=== PATIENT | male | born 1940 | race Caucasian/White ===

== ENCOUNTER 2016-04-10 14:40 | Inpatient (IN) | payer OTHER ==
[2016-04-14] MEDS ORDERED: IOPAMIDOL (ISOVUE-300) 50 ML VIAL IV ONE (13:35)
[2016-04-15] MEDS ORDERED: MAG HYDROX/AL HYDROX/SIMETH 30 ML UDCUP PO PRN (16:32)
[2016-04-15] MEDS ORDERED: ACETAMINOPHEN 325 MG TAB PO PRN (16:32)
[2016-04-15] MEDS ORDERED: NITROGLYCERIN 0.4 MG BTL SL PRN (16:47)
[2016-04-15] MEDS ORDERED: ALBUTEROL 60 PUFFS/8 GM MDI IH PRN (16:47)
--- NOTE | 2016-04-15 17:54 | PDOREHIP ---
Admission [facility] - Admission - 3 Day Assessment Period Admission Date/Day 1: 04/15/16 Day 2: 04/16/16 Day 3: 04/17/16 - Skin Conditions Unhealed Pressure Ulcer (1 or more/Stage 1 or >)-Admission: 0. No
--- NOTE | 2016-04-15 18:24 | GHP ---
Created in error. Physical exam was dictated to this note and moved to the full H&P. MTDD
[2016-04-15] MEDS ORDERED: CARVEDILOL 6.25 MG TAB PO ONE (19:00)
--- NOTE | 2016-04-15 19:44 | GHP ---
[f rep st] HISTORY AND PHYSICAL DATE OF ADMISSION: 04/15/2016 Referring Physician: Alec Dong MD Inpatient Rehabilitation Medicine Post Admission Physician Evaluation and Rehabilitation Treatment Plan REFERRING FACILITY: [facility]. CONSULTING PHYSICIANS: None. REHAB DIAGNOSIS: Left frontal intraparenchymal hemorrhage with impairments in cognition, mobility, and self-care. IMPAIRMENT GROUP/ETIOLOGIC DIAGNOSIS: 2.1, nontraumatic brain dysfunction. DATE OF ONSET: 04/04/2016 DATE OF SURGERY: 04/04/2016 HISTORY OF PRESENT ILLNESS: This is a 75-year-old male with history of coronary artery disease, a history of VA at age 37, hypertension, hyperlipidemia , atrial fibrillation and ventricular tachycardia with a spontaneous left frontal intraparenchymal hemorrhage on 04/04/2016, when he was on Warfarin with an INR of 2.12. History was obtained from records from [facility] as well as from the patient's . He reportedly was in previously good functional health and felt good the evening before he went to bed. He woke up approximately at 4 or 5 o'clock in the morning, went to the bathroom, and began vomiting. He slid down the wall arousing his from sleep. He had unknown loss of consciousness or not sure if he hit is head on the way down, but he was put back on oxygen and went back to bed. When he woke up in the morning again at 9:30 or so, he had another episode of nausea and vomiting and was brought to the hospital. In the emergency room, he had a CT of the head that demonstrated a large left frontal lobe intraparenchymal hemorrhage approximately 6 x 4 x 6 cm with associated edema and local mass effect with 1 cm left to right midline shift in the anterior aspect. They also noted trace intraventricular hemorrhage of the lateral ventricles without hydrocephalus. The patient was reversed in anticoagulation and admitted to the ICU. The patient had a craniotomy urgently the same day. Overall, the hospital course was relatively unremarkable. He had a followup CT scan on 04/13 that reportedly showed continued improvement and resolution of blood products though images were not available for review and report was not available either. They restarted his aspirin on 04/09/2016, and noted that the patient could resume Coumadin in a week if medically necessary. He was also started on Keppra for seizure prophylaxis, which can be weaned off as he follows up as an outpatient. Sutures were in place without any infection and remained in place for 14 days after the admission. He was also evaluated for amyloid angiopathy and reportedly was negative. Though I do not see the results of this, this was noted in a neurosurgery progress note from [facility]. He was also evaluated by PT/OT and speech, found to have deficits in cognition, mobility, and self-care, appropriate for inpatient rehabilitation. Also, history from family and patient includes that he was not sleeping particularly well at night. Melatonin was not helpful. He was taking Benadryl at home for sleep aid. He was also on 1-2 L of oxygen for sleep apnea at baseline and this is usually humidified, he did not tolerate CPAP. In regard to his cardiac history, he has a defibrillator and has not had history of previous strokes or neurological insults. He was taken off Warfarin when he was admitted to the hospital, and his INR is typically stable as an outpatient. The patient and his both report that he is stable neurologically and has not had any new decrement in his function. They also note off hand that he occasionally gets nosebleeds and hence they humidify the oxygen that he gets at night. Of note, on review of the records it appears that he was periodically hypokalemic and was on electrolyte protocol though this was not specified in detail. He is on diuretics at baseline and may be getting some potassium repletion. On relevant review of systems, also they note that he does not have any skin breakdown, has not had any skin issues. No other pain or other limiting issues. He also does not have a history of joint problems or other mobility limiting issues. Recent illnesses include a brief sickness over Dilip with some cough and congestion, but otherwise it cleared. STUDIES/LABS: The patient had CT scan on 04/04/2016, as well as one on 2016, reviewed above. Relevant labs from review of his admission paperwork and notes show that on 04/13/2016, he had a sodium of 136, potassium 3.8 that looked like it was as low as 3.4 in the past admission, chloride was 102, CO2 was 24, BUN 23, creatinine 0.76, calcium 8.8, glucose 109. White blood cells 11.73, hemoglobin 12.3, hematocrit 37.2. PRECAUTIONS: Use fall risk, aspiration precautions, wonder precautions with a bed alarm, and he had a sitter at the other facility. PAST MEDICAL HISTORY: 1. Coronary artery disease with VA in 1979 and a CABG in 1998, heart failure. 2. Heart attack. 3. Hyperlipidemia. 4. Hypertension. 5. Atrial fibrillation. 6. Chronic anticoagulation. 7. Ventricular tachycardia. 8. Sleep apnea. 9. Ischemic cardiomyopathy. 10. Anemia. 11. Hypoxia, nocturnal. 12. Gastritis. 13. Diverticulitis of colon. 14. Automatic cardioverter and defibrillator history. 15. Chronic hypotension. 16. Mitral regurgitation, moderate. 17. Left atrial enlargement. 18. History of 3-vessel CABG in 1998. 19. Intracerebral hemorrhage with impairments in cognition, mobility, and self- care as noted in the admission reason. PAST SURGICAL HISTORY: 1. Cardiac catheterization in 1979, 1998, 2012. 2. Coronary artery bypass graft in 1998. 3. Pacemaker and AICD placement in 2001 and 2008, which is a biventricular [employer]. 4. History of tonsillectomy. Note, cardiac catheterization showed large apical hypokinesis. PREHOSPITAL MEDICATIONS: 1. Aspirin 81 mg daily. 2. Carvedilol 12.5 mg twice a day with meals. 3. Coenzyme Q10 100 mg by mouth a day. 4. Digoxin 125 mcg by mouth once a day. 5. Fluticasone spray 1 spray in each nostril at bedtime. 6. Furosemide, dose not listed. 7. Ipratropium bromide 1 spray in each nostril 3 times a night. 8. Losartan 25 mg by mouth 2 times a day. 9. Magnesium oxide 400 mg tablet 250 mg by mouth once a day. 10. Nitroglycerin 0.4 mg sublingual tablet p.r.n. 11. [place]-3 fatty acids 1 tablet by mouth once a day. 12. Pravastatin 20 mg once a day. 13. ProAir HFA 1-2 puffs every 4 hours as needed for shortness of breath. 14. Coumadin 4 mg tablet every Wednesday at 4 p.m. and 2 mg by mouth 6 times a week. ADMISSION MEDICATIONS: As follows, unreviewed medication list: 1. Digoxin 125 mcg tablet by mouth once a day. 2. Aspirin 81 mg daily. 3. Carvedilol 12.5 mg 2 times a day with meals. 4. Coenzyme Q10 100 mg by mouth once a day. 5. Fluticasone 1 spray in each nostril at bedtime as needed. 6. Furosemide 40 mg by mouth once a day. 7. Ipratropium 1 spray in nostril 3 times a night. 8. Losartan 25 mg by mouth 2 times a day. 9. Nitroglycerin 0.4 mg under the tongue every 5 minutes p.r.n. for chest pain. 10. Pravastatin 20 mg by mouth once a day. 11. ProAir HFA 1-2 puffs by inhalation every 4 hours for shortness of breath. 12. Warfarin 4 mg by mouth every Wednesday at 4 p.m. 13. Warfarin 2 mg by mouth 6 times a week. Note, Warfarin does not seem to be continued even though within the discharge summary it says to do so. Notes from the neurosurgeon says approximately 2 weeks before restarting Warfarin. 14. Acetaminophen 650 mg by mouth every 6 hours as needed. 15. Senna docusate 1 tablet by mouth 2 times a day. 16. He was asked to stop taking [place]-3 fatty acids. 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 FAMILY HISTORY: Father had an VA at age 64. Brother had an VA in his 60s. He has also had uncles with MIs. PSYCHOSOCIAL HISTORY: The patient lives with his in [place] close to their daughter and daughter's family as well. He plans to discharge [facility] with his family [facility]. He is accustomed to taking care of his grandchildren to help out his daughter. Grandchildren are 6 and 4. He has a [id number] history of smoking and stopped in 1979. Drinks approximately 6 alcoholic beverages a year. Denies any drug use. REVIEW OF SYSTEMS: All other systems are negative except for as described above. FUNCTIONAL HISTORY: The patient was previously independent and driving, taking care of his grandkids as noted above. He was walking approximately 1 mile per day with his . Independent in ADLs as well as all his IADLs including driving as mentioned above. He would also handle finances, his own medications , etc. CURRENT FUNCTION: He is currently on regular diet, thin liquids. He is on supervision for aspiration precautions. He does need queuing and assistance for most of his ADLs including bed mobility. He is currently walking 180 feet with minimum assistance in a front-wheeled walker but has poor endurance. He also can comprehend and respond to simple questions with short responses but has impaired insight, initiation delayed response, and poor memory. He has a poor executive function right now. He has safety precautions as well including falls, confusion, and aspiration precautions. PHYSICAL EXAMINATION: VITAL SIGNS: Temperature is 36.8, blood pressure 109/72 , pulse of 84, respirations 17. GENERAL: He is in no apparent distress, sitting in the hospital room with his , resting in bed, in no apparent distress. He is a somewhat frail-appearing elderly male. HEENT: Eyes were anicteric, no lid lag. Pupils were equal, round and reactive to light. Ears, nose, mouth and throat: moist mucous membranes. CARDIOVASCULAR: Regular rate and rhythm. EXTREMITIES: No lower extremity edema was appreciated. EXTREMITIES: Warm. He had no carotid bruits on either side. RESPIRATORY: He is breathing comfortably on room air. LUNGS: Clear to auscultation bilaterally. No wheezes, rhonchi or rales. GI: Abdomen is nondistended, positive bowel sounds, no tenderness or guarding. : No Tse was in place. MUSCULOSKELETAL: No contracture was noted, no gross deformities. SKIN: Showed no rashes or skin breakdown on the heels. PSYCH: He was appropriate, pleasant and cooperative. He endorsed a normal mood, he had a congruent affect , and normal thought content, though somewhat confused. HEME/LYMPH: No supraclavicular lymphadenopathy. He had some bruising on his arms and legs, that his notes are from his anticoagulation, as well as his fall and needle sticks at prior hospital. NEUROLOGIC: Mental status: The patient was alert, he is oriented to self but not the correct hospital. He is oriented to the state, he is oriented to the date but not the month, and he got the year correct. He is also oriented to season. He is able to repeat 3 words after one trial, but unable to copy a cube accurately. He was able to draw a clock [place], but no numbers on the clock, and when he tried later they were in the wrong location, but the hands were close to 11:40, which I asked him to do. He was unable to do any serial sevens, delayed recall of 0 of 3 words after 5 minutes, even with cueing. He was able to repeat a phrase, "[place]", able to name a pen. He was unable to write a sentence correctly. He was unable to explain 2 out of 2 similarities, or one abstract concept. Cranial nerves II-XII were intact and symmetric bilaterally, however, he would not shrug his shoulders for me on either side. Strength was otherwise 5/5 and symmetrical in the bilateral biceps, triceps, wrist extensor, finger flexors, finger abductors, as well as the hip flexors, extensors, and he had some confusion on ankle dorsiflexion and plantar flexion, but these appeared strong. Reflexes were 2+ in the right-sided biceps, 1+ on the left, otherwise symmetric in the brachial radialis, and 2+ in the patella without any clonus at the ankles. He had absent Pinto's and Babinski was equivocal. No spasticity. Sensation was intact to light touch in the hands and feet without any evidence of neglect. He also had intact but slow, rapid alternating movements on bilateral hands. It appears that his motor planning was somewhat impaired. Nbzcmg-tu-odol and fnpq-ap-pdop testing was normal without dysmetria or tremor. Sitting balance was intact. He was not ambulated. ASSESSMENT/PLAN: This is a very pleasant 75-year-old male, now status post a spontaneous left frontal intraparenchymal hemorrhage while he was on Warfarin with a therapeutic INR, who has a history of coronary artery disease, history of myocardial infarction at age 37, hypertension, hyperlipidemia, atrial fibrillation and ventricular tachycardia with an automatic implantable cardiac defibrillator who was previously very high functioning, taking care of grandchildren, fully independent in ADLs and IADLs with good social support and close family who now has severe impairments in cognition, mobility, and self- care, necessitating inpatient rehabilitation. His excellent premorbid function and good social support bodes well for his course in rehabilitation. His course may be complicated by cardiac complications, complications of chronic anticoagulation or lack of anticoagulation, as well as complications such as aspiration. We discussed the specific issues below: 1. Status post intracerebral hemorrhage 04/04/2016, also status post craniotomy and evacuation: He has precautions limiting lifting to 5-10 pounds for the next week to 2 weeks and can be increased to 20 pounds after that. Additionally, he was found to be negative for amyloid angiopathy. He was started on aspirin and will continue that at 81 mg. Warfarin is currently held and can be restarted in a week if necessary per the neurosurgery discharge summary. Additionally, he is on seizure prophylaxis with Keppra 750 mg b.i.d. and this should continue. Sutures will remain in place for the next several days, 2 weeks after surgery at least. As noted above, will currently hold Warfarin as an anticoagulant due to the risk of repeat intracerebral hemorrhage. 2. Cardiac: Hypertension, atrial fibrillation, ventricular tachycardia, ischemic cardiomyopathy, and anticoagulation. Plan to continue home medications with the exception of Warfarin. These include spironolactone 25 mg daily, aspirin 81 mg daily at this point, carvedilol 25 mg p.o. b.i.d., losartan 25 p.o. b.i.d., digoxin 125 mcg p.o. daily, furosemide 40 mg p.o. daily , nitroglycerin 0.4 mg sublingual as needed, pravastatin 20 mg daily. Continue to monitor. The patient is reported to have chest pain relieved by nitroglycerin. If nitroglycerin does not relive it, then care should be escalated. 3. Fluid electrolytes and nutrition: The patient appears to have had a history of hypokalemia during his hospitalization. We will check potassium tomorrow morning with labs that include a complete metabolic panel, CBC, and INR. Potassium may need to be monitored more closely given his history of hypokalemia and unclear how much potassium he received during that hospitalization. It does not appear that he was on home potassium supplementation, but this can be further clarified. He can continue on a regular diet with thin liquids. I entered in a cardiac diet for him given his history. 4. Respiratory: Unclear what his respiratory diagnosis is, but he does need oxygen at night for hypoxia. It appears that he may have a history of sleep apnea per the family, but unclear what that treatment program except for that he was not able to tolerate a CPAP machine. Goal to keep oxygen saturations above 92%. Continue the inhaled medications which include ipratropium and albuterol inhaler PRN. 5. Insomnia: The patient has insomnia at baseline per his family's report, typically taking Benadryl. We will prescribe a low dose of trazodone 50 mg p.o. q.h.s. for sleep. Melatonin was not helpful for him in the previous hospitalization. 6. Skin: No skin breakdown on admission. Continue to monitor. 7. Bowel/bladder: He is in currently continent but has an adult diaper for risk of incontinence. Monitor. Continue the adult diaper for now with goal to stop. He has not had alysha incontinence. Continue bowel med which included Senna. 8. Wounds: He has a head wound that is healing well. No special care needed. 9. Durable medical power of estate planning attorney: That is his . 10. Code status: Full code. ESTIMATED LENGTH OF STAY: 12-14 days. He plans to discharge home with family as his primary client care representative. He will likely need home health services including speech, OT, PT, support group, and brain injury care. /[id number]/MODL MTDD
[2016-04-15] MEDS: CARVEDILOL 25 MG TAB PO SCH (19:53)
[2016-04-15] MEDS: levETIRAcetam 500 MG TAB PO SCH (21:40)
[2016-04-15] MEDS: LOSARTAN POTASSIUM 25 MG TAB PO SCH (21:41)
[2016-04-15] MEDS: traZODone 50 MG TAB PO SCH (21:42)
[2016-04-15] MEDS: SENNOSIDES/DOCUSATE SODIUM TAB PO SCH (21:42)
[2016-04-15] MEDS: FLUTICASONE NASAL 120 SPRAYS/16 GM MDI EACHNARE SCH (21:43)
[2016-04-15] MEDS: HEPARIN 5,000 UNIT/0.5 ML SYR SC SCH (21:44)
[2016-04-15] MEDS: IPRATROPIUM 0.03% NASAL SPRAY EACHNARE SCH (21:46)
[2016-04-16] MEDS: HEPARIN 5,000 UNIT/0.5 ML SYR SC SCH ×3 (06:18→22:00)
[2016-04-16 08:21] LABS: % IMMATURE GRANULYOCYTES 1.7 % (0.0-1.1); ABSOLUTE IMMATURE GRANULOCYTES 0.23 10^3/uL (0.00-0.10); ADD DIFF? NO; ADD MORPH? NO; ADD SCAN? NO; ATYPICAL LYMPHOCYTE FLAG 10 (0-99); FRAGMENT RBC FLAG 0 (0-99); HEMATOCRIT 43.9 % (40.0-51.0); LEFT SHIFT FLG 10 (0-99); LIPEMIA HEMOLYSIS FLAG 80 (0-99); MEAN CELL HEMOGLOBIN 29.1 pg (27.9-34.1); MEAN CELL HEMOGLOBIN CONCENTR. 31.9 g/dL (32.4-36.7); MEAN CELL VOLUME 91.3 fL (81.5-99.8); MEAN PLATELET VOLUME 11.2 fL (8.7-11.7); PLATELET CLUMPS FLAG 10 (0-99); PLATELET COUNT 273 10^3/uL (150-400); RED BLOOD CELL COUNT 4.81 10^6/uL (4.40-6.38); RED CELL DISTRIBUTION WIDTH 16.4 % (11.5-15.2)
[2016-04-16 08:34] LABS: POTASSIUM 4.5 mEq/L (3.5-5.2)
[2016-04-16 08:35] LABS: ALANINE AMINOTRANSFERASE 92 IU/L (21-72); ALBUMIN 4.3 g/dL (3.5-5.0); ALKALINE PHOSPHATASE 124 IU/L (38-126); ANION GAP 12 mEq/L (8-16); ASPARTATE AMINOTRANSFERASE 105 IU/L (17-59); BILIRUBIN,TOTAL 1.9 mg/dL (0.1-1.4); CALCIUM 9.6 mg/dL (8.5-10.4); CARBON DIOXIDE 28 mEq/l (22-31); CHLORIDE 100 mEq/L (97-110); CREATININE 0.8 mg/dL (0.7-1.3); GLOMERULAR FILTRATION RATE > 60; GLUCOSE 101 mg/dL (70-100); SODIUM 140 mEq/L (134-144); TOTAL PROTEIN 7.9 g/dL (6.3-8.2)
[2016-04-16 08:48] LABS: INR 1.15 (0.83-1.16); PROTIME(PATIENT) 14.7 SEC (12.0-15.0)
[2016-04-16] MEDS: FUROSEMIDE 40 MG TAB PO SCH (10:00)
[2016-04-16] MEDS: levETIRAcetam 500 MG TAB PO SCH ×2 (10:00→21:59)
[2016-04-16] MEDS: IPRATROPIUM 0.03% NASAL SPRAY EACHNARE SCH ×3 (10:00→22:03)
[2016-04-16] MEDS: CARVEDILOL 25 MG TAB PO SCH ×2 (10:00→18:02)
[2016-04-16] MEDS: ASPIRIN 81 MG CHEWABLE TAB PO SCH (10:00)
[2016-04-16] MEDS: SENNOSIDES/DOCUSATE SODIUM TAB PO SCH ×2 (10:01→22:00)
[2016-04-16] MEDS: SPIRONOLACTONE 25 MG TAB PO SCH (10:01)
[2016-04-16] MEDS: PRAVASTATIN SODIUM 20 MG TAB PO SCH (10:01)
[2016-04-16] MEDS: DIGOXIN 125 MCG TAB PO SCH (10:01)
[2016-04-16] MEDS: LOSARTAN POTASSIUM 25 MG TAB PO SCH (10:01)
--- NOTE | 2016-04-16 12:36 | SOAPPROG ---
[id number] deficits to self-care and mobility. PT and OT to optimize functional status. * Cognitive impairment. To be assessed and treated by PROPERTY INSPECTOR. * S/P ICH, craniotomy, evacuation. Lifting limited to 5 - 10 lb through 04/30/16 , then increase to 20 lb. Consider restarting warfarin for AFib 04/23/16 * AFib. Per CHADS2-VASC score, approx 7% chance of CVA or 10% chance CVA or other thromboembolic event; per HAS-BLED score, 8% chance of rebleed. Continue ASA, carvedilol and digoxin for rate control. Consider reinstating warfarin. * CHF: on spironolactone, furosemide, carvedilol. losartan, digoxin. BP running low but does not appear symptomatic of hypotension or fluid overload. Not hypoxic. Reduce carvedilol from 25 mg BID to 12.5 mg BID. * ABRAHAN? On O2 at night. * Insomnia: if he is reporting accurately, responding to trazodone. * CAD: on ASA, BP control, statin, NTG. No symptoms at present. 04/16/16 12:23 Subjective: No complaints. Slept well. Denies f/c, cough.dyspnea, n/v/c/d, dysuria or urinary frequency. Objective: Vital Signs Temp Pulse Resp BP Pulse Ox 36.4 C 80 13 101/60 92 04/16/16 08:00 04/16/16 10:01 04/16/16 08:00 04/16/16 10:01 04/16/16 08:00 Laboratory Results 04/16/16 05:00 04/16/16 05:00 04/15/16 04/16/16 04/17/16 05:59 05:59 05:59 Intake Total 800 400 Output Total 1205 Balance -405 400 PT 14.7 SEC (12.0-15.0) 04/16/16 05:00 INR 1.15 (0.83-1.16) 04/16/16 05:00 Physical Exam - Physical Exam General Appearance: WD/WN, alert, no apparent distress Respiratory: normal breath sounds, No crackles, No rhonchi, No wheezing Cardiac/Chest: regular rate, rhythm, No edema, No JVD Skin: normal color, warm/dry Neuro/Psych: alert, normal mood/affect, cognition abnormalities (Paucity of thought), other (Unable to describe what he did for work.) ICD10 Worksheet Patient Problems: Problems Problem Status Diagnosed Cognitive impairment Acute Debility Acute Intracranial hemorrhage Acute S/P craniotomy Acute
[2016-04-16] MEDS: traZODone 50 MG TAB PO SCH (21:59)
[2016-04-16] MEDS: FLUTICASONE NASAL 120 SPRAYS/16 GM MDI EACHNARE SCH (22:03)
[2016-04-17] MEDS: HEPARIN 5,000 UNIT/0.5 ML SYR SC SCH ×3 (05:07→22:57)
[2016-04-17] MEDS: CARVEDILOL 25 MG TAB PO SCH (09:45)
[2016-04-17] MEDS: ASPIRIN 81 MG CHEWABLE TAB PO SCH (09:46)
[2016-04-17] MEDS: levETIRAcetam 500 MG TAB PO SCH ×2 (09:51→22:55)
[2016-04-17] MEDS: FUROSEMIDE 40 MG TAB PO SCH (09:51)
[2016-04-17] MEDS ORDERED: CARVEDILOL 25 MG TAB PO SCH (09:56)
[2016-04-17] MEDS: SENNOSIDES/DOCUSATE SODIUM TAB PO SCH ×2 (09:59→22:56)
[2016-04-17] MEDS: PRAVASTATIN SODIUM 20 MG TAB PO SCH (09:59)
[2016-04-17] MEDS: SPIRONOLACTONE 25 MG TAB PO SCH (09:59)
[2016-04-17] MEDS: LOSARTAN POTASSIUM 25 MG TAB PO SCH (09:59)
--- NOTE | 2016-04-17 09:59 | SOAPPROG ---
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 Initial FIM 38 on 04/17/16. Much decreased initiation. Fatigue steve in afternoon limits participation. CGA to Min A for mobility with cues to initiate and steer; similar issues for ADLs. PT and OT to optimize functional status. Trial of methylphenidate for fatigue and attention. * Cognitive impairment. Expressive and receptive aphasia; decreased initiation , exec fn, problem solving, attention. * S/P ICH, craniotomy, evacuation. Lifting limited to 5 - 10 lb through 04/30/16 , then increase to 20 lb. Consider restarting warfarin for AFib 04/23/16 * AFib. Per CHADS2-VASC score, approx 7% chance of CVA or 10% chance CVA or other thromboembolic event; per HAS-BLED score, 8% chance of rebleed. Continue ASA, carvedilol and digoxin for rate control. Consider reinstating warfarin. * CHF: on spironolactone, furosemide, carvedilol. losartan, digoxin. BP running low but does not appear symptomatic of hypotension or fluid overload. Not hypoxic. Reduced carvedilol from 25 mg BID to 12.5 mg BID on 04/16/16; reduce further to 6.25 mg BID on 04/17/16. * ABRAHAN? On O2 at night. * Insomnia: if he is reporting accurately, responding to trazodone. * CAD: on ASA, BP control, statin, NTG. No symptoms at present. Attended staffing, 15 min. D/W case mgmt, nursing, PT, OT, CENTER MAKER HAND. brokerage branch manager, pharmacist. Lives in single level home. 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 With severe level of impairment, unclear re length of stay and eventual disposition. Reassess one week. 04/17/16 11:30 Subjective: No complaints. Mostly non-verbal; nodding head yes or no. Was fatigued this morning and did not want to shower but eventually did shower. Nurse notes low BP with systolic 97. Objective: Vital Signs Temp Pulse Resp BP Pulse Ox 36.4 C 71 16 97/59 L 94 04/16/16 20:00 04/17/16 09:45 04/17/16 09:45 04/17/16 09:45 04/17/16 09:46 Laboratory Results 04/16/16 05:00 04/16/16 05:00 04/16/16 04/17/16 04/18/16 05:59 05:59 05:59 Intake Total 800 1640 Output Total 1205 200 Balance -405 1440 PT 14.7 SEC (12.0-15.0) 04/16/16 05:00 INR 1.15 (0.83-1.16) 04/16/16 05:00 - Time Spent With Patient Time Spent With Patient: Greater than 35 minutes floor time today, including more than 50% of time in coordination of care during staffing, and counseling patient and . Physical Exam - Physical Exam General Appearance: WD/WN, alert, no apparent distress Respiratory: normal breath sounds, No crackles, No rhonchi, No wheezing Cardiac/Chest: regular rate, rhythm, No edema, No JVD Skin: normal color, warm/dry Neuro/Psych: alert, normal mood/affect ICD10 Worksheet Patient Problems: Problems Problem Status Diagnosed Cognitive impairment Acute Debility Acute Intracranial hemorrhage Acute S/P craniotomy Acute
[2016-04-17] MEDS: IPRATROPIUM 0.03% NASAL SPRAY EACHNARE SCH ×3 (10:05→22:58)
[2016-04-17] MEDS: DIGOXIN 125 MCG TAB PO SCH (10:07)
[2016-04-17] MEDS: CARVEDILOL 6.25 MG TAB PO SCH ×2 (12:15→17:05)
[2016-04-17] MEDS: traZODone 50 MG TAB PO SCH (22:57)
[2016-04-17] MEDS: FLUTICASONE NASAL 120 SPRAYS/16 GM MDI EACHNARE SCH (22:57)
[2016-04-18] MEDS: HEPARIN 5,000 UNIT/0.5 ML SYR SC SCH ×3 (07:33→21:03)
[2016-04-18] MEDS: CARVEDILOL 6.25 MG TAB PO SCH ×2 (09:12→19:07)
[2016-04-18] MEDS: SPIRONOLACTONE 25 MG TAB PO SCH (09:12)
[2016-04-18] MEDS: SENNOSIDES/DOCUSATE SODIUM TAB PO SCH ×2 (09:12→21:03)
[2016-04-18] MEDS: levETIRAcetam 500 MG TAB PO SCH ×2 (09:12→21:03)
[2016-04-18] MEDS: FUROSEMIDE 40 MG TAB PO SCH (09:12)
[2016-04-18] MEDS: ASPIRIN 81 MG CHEWABLE TAB PO SCH (09:13)
[2016-04-18] MEDS: PRAVASTATIN SODIUM 20 MG TAB PO SCH (09:13)
[2016-04-18] MEDS: LOSARTAN POTASSIUM 25 MG TAB PO SCH (09:13)
[2016-04-18] MEDS: IPRATROPIUM 0.03% NASAL SPRAY EACHNARE SCH ×3 (09:13→21:05)
[2016-04-18] MEDS: DIGOXIN 125 MCG TAB PO SCH (09:13)
--- NOTE | 2016-04-18 11:31 | SOAPPROG ---
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 Initial FIM 38 on 04/17/16. Much decreased initiation. Fatigue steve in afternoon limits participation. CGA to Min A for mobility with cues to initiate and steer; similar issues for ADLs. PT and OT to optimize functional status. Trial of methylphenidate for fatigue and attention. He had some mild aggitation this am reported by PT but it resolved. * Constipation-nursing reports no BM since 04/15. Will order MOM. * Cognitive impairment. Expressive and receptive aphasia; decreased initiation , exec fn, problem solving, attention. * S/P ICH, craniotomy, evacuation. Lifting limited to 5 - 10 lb through 04/30/16 , then increase to 20 lb. Consider restarting warfarin for AFib 04/23/16 * AFib. Per CHADS2-VASC score, approx 7% chance of CVA or 10% chance CVA or other thromboembolic event; per HAS-BLED score, 8% chance of rebleed. Continue ASA, carvedilol and digoxin for rate control. Consider reinstating warfarin. * CHF: on spironolactone, furosemide, carvedilol. losartan, digoxin. BP running low but does not appear symptomatic of hypotension or fluid overload. Not hypoxic. Reduced carvedilol from 25 mg BID to 12.5 mg BID on 04/16/16; reduce further to 6.25 mg BID on 04/17/16. * ABRAHAN? On O2 at night. * Insomnia: if he is reporting accurately, responding to trazodone. * CAD: on ASA, BP control, statin, NTG. No symptoms at prese Plan: 04/18/16 11:21 Subjective: Nursing reports no BM since 04/15 Objective: Vital Signs Temp Pulse Resp BP Pulse Ox 36.7 C 74 16 100/61 94 04/18/16 07:54 04/18/16 09:13 04/18/16 07:54 04/18/16 09:13 04/18/16 07:54 Laboratory Results 04/16/16 05:00 04/16/16 05:00 04/17/16 04/18/16 04/19/16 05:59 05:59 05:59 Intake Total 1640 100 118 Output Total 200 700 Balance 1440 -600 118 PT 14.7 SEC (12.0-15.0) 04/16/16 05:00 INR 1.15 (0.83-1.16) 04/16/16 05:00 Physical Exam - Physical Exam General Appearance: alert, thin Respiratory: chest non-tender, lungs clear, normal breath sounds Cardiac/Chest: No edema, No JVD Abdomen: non-tender, soft Skin: warm/dry Extremities: normal range of motion Neuro/Psych: alert (Good UE and LE strength. No ankle clonus), aphasia ICD10 Worksheet Patient Problems: Problems Problem Status Diagnosed Cognitive impairment Acute Debility Acute Intracranial hemorrhage Acute S/P craniotomy Acute
[2016-04-18] MEDS: MAGNESIUM HYDROXIDE 30 ML UDCUP PO PRN (14:07)
[2016-04-18] MEDS: traZODone 50 MG TAB PO SCH (21:03)
[2016-04-18] MEDS: FLUTICASONE NASAL 120 SPRAYS/16 GM MDI EACHNARE SCH (21:05)
[2016-04-19] MEDS: CARVEDILOL 6.25 MG TAB PO SCH ×2 (08:25→17:41)
[2016-04-19] MEDS: SENNOSIDES/DOCUSATE SODIUM TAB PO SCH ×2 (08:27→21:46)
[2016-04-19] MEDS: LOSARTAN POTASSIUM 25 MG TAB PO SCH (08:27)
[2016-04-19] MEDS: SPIRONOLACTONE 25 MG TAB PO SCH (08:27)
[2016-04-19] MEDS: PRAVASTATIN SODIUM 20 MG TAB PO SCH (08:28)
[2016-04-19] MEDS: FUROSEMIDE 40 MG TAB PO SCH (08:28)
[2016-04-19] MEDS: ASPIRIN 81 MG CHEWABLE TAB PO SCH (08:28)
[2016-04-19] MEDS: levETIRAcetam 500 MG TAB PO SCH ×2 (08:28→21:45)
[2016-04-19] MEDS: IPRATROPIUM 0.03% NASAL SPRAY EACHNARE SCH ×3 (08:34→21:50)
[2016-04-19] MEDS: DIGOXIN 125 MCG TAB PO SCH (10:27)
--- NOTE | 2016-04-19 10:31 | SOAPPROG ---
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 Initial FIM 38 on 04/17/16. Much decreased initiation. Fatigue steve in afternoon limits participation. CGA to Min A for mobility with cues to initiate and steer; similar issues for ADLs. PT and OT to optimize functional status. Trial of methylphenidate for fatigue and attention. He had some mild aggitation this am reported by PT but it resolved. Nursing reports decreased motivation this am. Consider increasing Ritalin dosage. * Constipation-Large BM LAST EVENING. * Cognitive impairment. Expressive and receptive aphasia; decreased initiation , exec fn, problem solving, attention. * S/P ICH, craniotomy, evacuation. Lifting limited to 5 - 10 lb through 04/30/16 , then increase to 20 lb. Consider restarting warfarin for AFib 04/23/16 * AFib. Per CHADS2-VASC score, approx 7% chance of CVA or 10% chance CVA or other thromboembolic event; per HAS-BLED score, 8% chance of rebleed. Continue ASA, carvedilol and digoxin for rate control. Consider reinstating warfarin. PATIENT REFUSED HEPARIN LAST PM. PREVIOUS INR FROM 02/14 WAS 1.15. THEREFORE BASED ON ABOVE, WILL BEGIN COUMADIN TODAY. INR ORDERED FOR AM. * CHF: on spironolactone, furosemide, carvedilol. losartan, digoxin. BP running low but does not appear symptomatic of hypotension or fluid overload. Not hypoxic. Reduced carvedilol from 25 mg BID to 12.5 mg BID on 04/16/16; reduce further to 6.25 mg BID on 04/17/16. * ABRAHAN? On O2 at night. * Insomnia: if he is reporting accurately, responding to trazodone. * CAD: on ASA, BP control, statin, NTG. No symptoms at prese Plan: 04/18/16 11:21 04/19/16 10:26 Subjective: No problems recorded by nursing staff. He had a large BM last evening after receiving suppository Objective: Vital Signs Temp Pulse Resp BP Pulse Ox 36.8 C 74 16 110/71 92 04/19/16 06:19 04/19/16 08:25 04/19/16 06:19 04/19/16 08:27 04/19/16 06:19 Laboratory Results 04/16/16 05:00 04/16/16 05:00 04/18/16 04/19/16 04/20/16 05:59 05:59 05:59 Intake Total 100 554 400 Output Total 700 1100 200 Balance -600 -546 200 PT 14.7 SEC (12.0-15.0) 04/16/16 05:00 INR 1.15 (0.83-1.16) 04/16/16 05:00 Physical Exam - Physical Exam General Appearance: WD/WN, alert, no apparent distress Neck: supple Respiratory: lungs clear, normal breath sounds Cardiac/Chest: No edema, No JVD Abdomen: normal bowel sounds, non-tender, soft Skin: normal color, warm/dry Neuro/Psych: alert, motor weakness, No normal mood/affect (DEPRESSED AFFECT) ICD10 Worksheet Patient Problems: Problems Problem Status Diagnosed Cognitive impairment Acute Debility Acute Intracranial hemorrhage Acute S/P craniotomy Acute
[2016-04-19] MEDS ORDERED: WARFARIN SODIUM 5 MG TAB PO ONE (10:35)
[2016-04-19] MEDS: traZODone 50 MG TAB PO SCH (21:45)
[2016-04-19] MEDS: FLUTICASONE NASAL 120 SPRAYS/16 GM MDI EACHNARE SCH (21:51)
[2016-04-20 08:47] LABS: INR 1.13 (0.83-1.16); PROTIME(PATIENT) 14.4 SEC (12.0-15.0)
[2016-04-20] MEDS: ASPIRIN 81 MG CHEWABLE TAB PO SCH (09:55)
[2016-04-20] MEDS: CARVEDILOL 6.25 MG TAB PO SCH ×2 (09:56→17:02)
[2016-04-20] MEDS: DIGOXIN 125 MCG TAB PO SCH (09:59)
[2016-04-20] MEDS: FUROSEMIDE 40 MG TAB PO SCH (10:00)
[2016-04-20] MEDS: IPRATROPIUM 0.03% NASAL SPRAY EACHNARE SCH ×3 (10:00→21:34)
[2016-04-20] MEDS: levETIRAcetam 500 MG TAB PO SCH ×2 (10:01→21:33)
[2016-04-20] MEDS: LOSARTAN POTASSIUM 25 MG TAB PO SCH (10:01)
[2016-04-20] MEDS: SPIRONOLACTONE 25 MG TAB PO SCH (10:04)
[2016-04-20] MEDS: SENNOSIDES/DOCUSATE SODIUM TAB PO SCH ×2 (10:04→21:32)
[2016-04-20] MEDS: PRAVASTATIN SODIUM 20 MG TAB PO SCH (10:04)
--- NOTE | 2016-04-20 10:25 | SOAPPROG ---
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 Initial FIM 38 on 04/17/16. Much decreased initiation. Fatigue steve in afternoon limits participation. CGA to Min A for mobility with cues to initiate and steer; similar issues for ADLs. PT and OT to optimize functional status. Trial of methylphenidate 2.5 mg BID at 0800 and 1200, begun on 04/17/16, for fatigue and attention. Has improved attention; no adverse effects noted; will titrate to 5 mg BID. * Cognitive impairment. Expressive and receptive aphasia; decreased initiation , exec fn, problem solving, attention. Improving. * S/P ICH, craniotomy, evacuation. Lifting limited to 5 - 10 lb through 04/30/16 , then increase to 20 lb. Consider restarting warfarin for AFib 04/23/16 * AFib. D/W cabbage salter Dr. Guo04/20/16, who saw Mr. Andrews at [facility]. Per CHADS2-VASC score, approx 18% chance of CVA ; per HAS- BLED score, 8% chance of rebleed. Start dabigatran as it's reversible and has lower bleeding risk than warfarin. Continue ASA, carvedilol and digoxin for rate control. Consider reinstating warfarin. * CHF: on spironolactone, furosemide, carvedilol. losartan, digoxin. BP running low but does not appear symptomatic of hypotension or fluid overload. Not hypoxic. Reduced carvedilol from 25 mg BID to 12.5 mg BID on 04/16/16; reduce further to 6.25 mg BID on 04/17/16. Reduce furosemide form 40 mg QD to 20 mg QD due to low BPs, starting 04/20/16. * ABRAHAN? On O2 at night. * Insomnia: if he is reporting accurately, responding to trazodone. * CAD: on ASA, BP control, statin, NTG. No symptoms at present. Lives in single level home. 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 With severe level of impairment, unclear re length of stay and eventual disposition. Reassess one week. PCP is Chica Barger. 04/20/16 21:18 Subjective: Low BP noted by nurse. He denies lightheadedness. Slept well, not in pain, no PHILLIPS, no f/c, cough/dyspnea. Objective: Vital Signs Temp Pulse Resp BP Pulse Ox 36.7 C 60 16 106/60 95 04/20/16 06:08 04/20/16 09:59 04/20/16 06:08 04/20/16 10:01 04/20/16 06:08 Laboratory Results 04/16/16 05:00 04/16/16 05:00 04/19/16 04/20/16 04/21/16 05:59 05:59 05:59 Intake Total 554 836 Output Total 1100 200 250 Balance -546 636 -250 PT 14.4 SEC (12.0-15.0) 04/20/16 05:00 INR 1.13 (0.83-1.16) 04/20/16 05:00 Physical Exam - Physical Exam General Appearance: WD/WN, alert, no apparent distress Respiratory: normal breath sounds, No crackles, No rhonchi, No wheezing Cardiac/Chest: regular rate, rhythm, No edema Skin: normal color, warm/dry Neuro/Psych: alert, normal mood/affect ICD10 Worksheet Patient Problems: Problems Problem Status Diagnosed Cognitive impairment Acute Debility Acute Intracranial hemorrhage Acute S/P craniotomy Acute
[2016-04-20] MEDS: DABIGATRAN ETEXILATE MESYL 150 MG CAP PO SCH (21:33)
[2016-04-20] MEDS: FLUTICASONE NASAL 120 SPRAYS/16 GM MDI EACHNARE SCH (21:34)
[2016-04-20] MEDS: traZODone 50 MG TAB PO SCH (21:34)
[2016-04-21] MEDS: CARVEDILOL 6.25 MG TAB PO SCH ×2 (07:08→17:52)
[2016-04-21] MEDS: ASPIRIN 81 MG CHEWABLE TAB PO SCH (07:08)
[2016-04-21] MEDS: DABIGATRAN ETEXILATE MESYL 150 MG CAP PO SCH ×2 (07:15→21:01)
[2016-04-21] MEDS: FUROSEMIDE 40 MG TAB PO SCH (07:16)
[2016-04-21] MEDS: levETIRAcetam 500 MG TAB PO SCH ×2 (07:17→21:01)
[2016-04-21] MEDS: IPRATROPIUM 0.03% NASAL SPRAY EACHNARE SCH ×3 (07:17→21:03)
[2016-04-21] MEDS: SENNOSIDES/DOCUSATE SODIUM TAB PO SCH ×2 (07:19→21:10)
[2016-04-21] MEDS: PRAVASTATIN SODIUM 20 MG TAB PO SCH (07:19)
[2016-04-21] MEDS: SPIRONOLACTONE 25 MG TAB PO SCH (07:19)
[2016-04-21] MEDS: LOSARTAN POTASSIUM 25 MG TAB PO SCH (07:19)
[2016-04-21] MEDS: DIGOXIN 125 MCG TAB PO SCH (11:18)
--- NOTE | 2016-04-21 13:17 | SOAPPROG ---
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 Initial FIM 38 on 04/17/16. Much decreased initiation. Fatigue steve in afternoon limits participation. CGA to Min A for mobility with cues to initiate and steer; similar issues for ADLs. PT and OT to optimize functional status. Trial of methylphenidate 2.5 mg BID at 0800 and 1200, begun on 04/17/16, for fatigue and attention. Has improved attention; no adverse effects noted; titrated to 5 mg BID 04/20/16 and now with increased perseveration; will reduce again to 2.5 mg BID starting 04/22/16. * Cognitive impairment. Expressive and receptive aphasia; decreased initiation , exec fn, problem solving, attention. Has had improvement, but SLUMS score 6/ 30 on 04/21/16. * S/P ICH, craniotomy, evacuation. Lifting limited to 5 - 10 lb through 04/30/16 , then increase to 20 lb. OK per Neurosurgery to resume anticoagulation for AFib. * AFib. D/W voting machine repairer Dr. Guo 04/20/16, who saw Mr. Andrews at [facility]. Per CHADS2-VASC score, approx 18% chance of CVA ; per HAS- BLED score, 8% chance of rebleed. Start dabigatran as it's reversible and has lower bleeding risk than warfarin; begun 04/20/16. Continue ASA, carvedilol and digoxin for rate control. * CHF: on spironolactone, furosemide, carvedilol. losartan, digoxin. BP running low but does not appear symptomatic of hypotension or fluid overload. Not hypoxic. Reduced carvedilol from 25 mg BID to 12.5 mg BID on 04/16/16; reduce further to 6.25 mg BID on 04/17/16. Reduce furosemide form 40 mg QD to 20 mg QD due to low BPs, starting 04/20/16. BP increasing 04/21/16; continue to monitor; consider increasing carvedilol. * OObstructive and central sleep apnea. Reviewed sleep study from 2012; plan was for another study to titrate ASV; not sure that happened and does not have CPAP here. On O2 at night. May account for nocturnal dyspnea and awakening * Insomnia: if he is reporting accurately, responding to trazodone. * CAD: on ASA, BP control, statin, NTG. No symptoms at present. Lives in single level home. 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 With severe level of impairment, unclear re length of stay and eventual disposition. Reassess one week. PCP is Chica Barger. 04/21/16 13:24 Subjective: Reports awakening at night with shortness of breath. No tremor and otherwise sleeping well. No MASON. Nursing and therapies report increased perseveration; was packing his belongings to leave. Objective: Vital Signs Temp Pulse Resp BP Pulse Ox 36.6 C 72 16 122/99 H 96 04/21/16 07:48 04/21/16 11:18 04/21/16 07:48 04/21/16 07:48 04/21/16 07:48 Laboratory Results 04/16/16 05:00 04/16/16 05:00 04/20/16 04/21/16 04/22/16 05:59 05:59 05:59 Intake Total 836 904 400 Output Total 200 600 Balance 636 304 400 PT 14.4 SEC (12.0-15.0) 04/20/16 05:00 INR 1.13 (0.83-1.16) 04/20/16 05:00 Physical Exam - Physical Exam General Appearance: WD/WN, alert, no apparent distress Respiratory: normal breath sounds, No crackles, No rhonchi, No wheezing Cardiac/Chest: regular rate, rhythm, No edema, No JVD Skin: normal color, warm/dry Neuro/Psych: no motor/sensory deficits, alert, normal mood/affect ICD10 Worksheet Patient Problems: Problems Problem Status Diagnosed Cognitive impairment Acute Debility Acute Intracranial hemorrhage Acute S/P craniotomy Acute
[2016-04-21] MEDS: traZODone 50 MG TAB PO SCH (21:01)
[2016-04-21] MEDS: FLUTICASONE NASAL 120 SPRAYS/16 GM MDI EACHNARE SCH (21:03)
[2016-04-22] MEDS: ASPIRIN 81 MG CHEWABLE TAB PO SCH (08:08)
[2016-04-22] MEDS: DABIGATRAN ETEXILATE MESYL 150 MG CAP PO SCH ×2 (08:09→22:07)
[2016-04-22] MEDS: CARVEDILOL 6.25 MG TAB PO SCH ×2 (08:09→18:01)
[2016-04-22] MEDS: FUROSEMIDE 40 MG TAB PO SCH (08:10)
[2016-04-22] MEDS: LOSARTAN POTASSIUM 25 MG TAB PO SCH (08:11)
[2016-04-22] MEDS: levETIRAcetam 500 MG TAB PO SCH ×2 (08:11→22:07)
[2016-04-22] MEDS: PRAVASTATIN SODIUM 20 MG TAB PO SCH (08:13)
[2016-04-22] MEDS: SENNOSIDES/DOCUSATE SODIUM TAB PO SCH ×2 (08:13→22:08)
[2016-04-22] MEDS: SPIRONOLACTONE 25 MG TAB PO SCH (08:14)
[2016-04-22] MEDS: IPRATROPIUM 0.03% NASAL SPRAY EACHNARE SCH ×3 (08:14→22:10)
--- NOTE | 2016-04-22 12:16 | SOAPPROG ---
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 Initial FIM 38 on 04/17/16. Much decreased initiation. Fatigue steve in afternoon limits participation. CGA to Min A for mobility with cues to initiate and steer; similar issues for ADLs. PT and OT to optimize functional status. Trial of methylphenidate 2.5 mg BID at 0800 and 1200, begun on 04/17/16, for fatigue and attention. Has improved attention; no adverse effects noted; titrated to 5 mg BID 04/20/16 and now with increased perseveration; will reduce again to 2.5 mg BID starting 04/22/16. * Cognitive impairment. Expressive and receptive aphasia; decreased initiation , exec fn, problem solving, attention. Has had improvement, but SLUMS score 6/ 30 on 04/21/16. * S/P ICH, craniotomy, evacuation. Lifting limited to 5 - 10 lb through 04/30/16 , then increase to 20 lb. OK per Neurosurgery to resume anticoagulation for AFib. * AFib. D/W couture alterations dressmaker Dr. Guo 04/20/16, who saw Mr. Andrews at [facility]. Per CHADS2-VASC score, approx 18% chance of CVA ; per HAS- BLED score, 8% chance of rebleed. Start dabigatran as it's reversible and has lower bleeding risk than warfarin; begun 04/20/16. Continue ASA, carvedilol and digoxin for rate control. * CHF: on spironolactone, furosemide, carvedilol. losartan, digoxin. BP running low but does not appear symptomatic of hypotension or fluid overload. Not hypoxic. Reduced carvedilol from 25 mg BID to 12.5 mg BID on 04/16/16; reduce further to 6.25 mg BID on 04/17/16. Reduce furosemide form 40 mg QD to 20 mg QD due to low BPs, starting 04/20/16. BP increasing 04/21/16; continue to monitor; consider increasing carvedilol. * Obstructive and central sleep apnea. Reviewed sleep study from 2012; plan was for another study to titrate ASV; not sure that happened and does not have CPAP here. On O2 at night. May account for nocturnal dyspnea and awakening * Insomnia: if he is reporting accurately, responding to trazodone. * CAD: on ASA, BP control, statin, NTG. No symptoms at present. Lives in single level home. 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 With severe level of impairment, unclear re length of stay and eventual disposition. Reassess one week. PCP is Chica Barger. 04/22/16 12:14 Subjective: No complaints. Eating lunch. Denies cough/dyspnea. Objective: Vital Signs Temp Pulse Resp BP Pulse Ox 36.9 C 94 16 116/66 93 04/22/16 05:05 04/22/16 08:09 04/22/16 05:05 04/22/16 08:11 04/22/16 05:05 Laboratory Results 04/16/16 05:00 04/16/16 05:00 04/21/16 04/22/16 04/23/16 05:59 05:59 05:59 Intake Total 904 1355 Output Total 600 350 Balance 304 1005 PT 14.4 SEC (12.0-15.0) 04/20/16 05:00 INR 1.13 (0.83-1.16) 04/20/16 05:00 Physical Exam - Physical Exam General Appearance: WD/WN, alert, no apparent distress Respiratory: No respiratory distress, No accessory muscle use Skin: normal color, warm/dry Neuro/Psych: alert, normal mood/affect, No abnormal gait, No motor weakness ICD10 Worksheet Patient Problems: Problems Problem Status Diagnosed Cognitive impairment Acute Debility Acute Intracranial hemorrhage Acute S/P craniotomy Acute
[2016-04-22] MEDS: DIGOXIN 125 MCG TAB PO SCH (13:10)
[2016-04-22] MEDS: traZODone 50 MG TAB PO SCH (22:07)
[2016-04-22] MEDS: FLUTICASONE NASAL 120 SPRAYS/16 GM MDI EACHNARE SCH (22:10)
[2016-04-23] MEDS: CARVEDILOL 6.25 MG TAB PO SCH ×2 (09:21→17:21)
[2016-04-23] MEDS: DABIGATRAN ETEXILATE MESYL 150 MG CAP PO SCH ×2 (09:24→20:14)
[2016-04-23] MEDS: ASPIRIN 81 MG CHEWABLE TAB PO SCH (09:24)
[2016-04-23] MEDS: FUROSEMIDE 40 MG TAB PO SCH (09:25)
[2016-04-23] MEDS: IPRATROPIUM 0.03% NASAL SPRAY EACHNARE SCH ×3 (09:26→20:14)
[2016-04-23] MEDS: levETIRAcetam 500 MG TAB PO SCH ×2 (09:26→20:14)
[2016-04-23] MEDS: LOSARTAN POTASSIUM 25 MG TAB PO SCH (09:27)
[2016-04-23] MEDS: SPIRONOLACTONE 25 MG TAB PO SCH (09:28)
[2016-04-23] MEDS: SENNOSIDES/DOCUSATE SODIUM TAB PO SCH ×2 (09:28→20:14)
[2016-04-23] MEDS: PRAVASTATIN SODIUM 20 MG TAB PO SCH (09:28)
[2016-04-23] MEDS: DIGOXIN 125 MCG TAB PO SCH (09:29)
[2016-04-23] MEDS: MAGNESIUM HYDROXIDE 30 ML UDCUP PO PRN (09:32)
--- NOTE | 2016-04-23 14:33 | SOAPPROG ---
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 Initial FIM 38 on 04/17/16. Much decreased initiation. Fatigue steve in afternoon limits participation. CGA to Min A for mobility with cues to initiate and steer; similar issues for ADLs. PT and OT to optimize functional status. Trial of methylphenidate 2.5 mg BID at 0800 and 1200, begun on 04/17/16, for fatigue and attention. Has improved attention; no adverse effects noted; titrated to 5 mg BID 04/20/16 and now with increased perseveration; will reduce again to 2.5 mg BID starting 04/22/16. * Cognitive impairment. Expressive and receptive aphasia; decreased initiation , exec fn, problem solving, attention. Has had improvement, but SLUMS score 6/ 30 on 04/21/16. * S/P ICH, craniotomy, evacuation. Lifting limited to 5 - 10 lb through 04/30/16 , then increase to 20 lb. OK per Neurosurgery to resume anticoagulation for AFib. * AFib. D/W welder tech Dr. Guo 04/20/16, who saw Mr. Andrews at [facility]. Per CHADS2-VASC score, approx 18% chance of CVA ; per HAS- BLED score, 8% chance of rebleed. Start dabigatran as it's reversible and has lower bleeding risk than warfarin; begun 04/20/16. Continue ASA, carvedilol and digoxin for rate control. * CHF: on spironolactone, furosemide, carvedilol. losartan, digoxin. BP running low but does not appear symptomatic of hypotension or fluid overload. Not hypoxic. Reduced carvedilol from 25 mg BID to 12.5 mg BID on 04/16/16; reduce further to 6.25 mg BID on 04/17/16. Reduce furosemide form 40 mg QD to 20 mg QD due to low BPs, starting 04/20/16. BP increasing 04/21/16; continue to monitor; consider increasing carvedilol. * Obstructive and central sleep apnea. Reviewed sleep study from 2012; plan was for another study to titrate ASV; not sure that happened and does not have CPAP here. On O2 at night. May account for nocturnal dyspnea and awakening * Insomnia: if he is reporting accurately, responding to trazodone. * CAD: on ASA, BP control, statin, NTG. No symptoms at present. Lives in single level home. 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 With severe level of impairment, unclear re length of stay and eventual disposition. Reassess one week. PCP is Chica Barger. 04/23/16 14:31 Subjective: No complaints. Slept well, no f/c, cough/dyspnea. Doing balance test with PT. Objective: Vital Signs Temp Pulse Resp BP Pulse Ox 36.6 C 74 16 127/73 H 94 04/23/16 08:00 04/23/16 09:29 04/23/16 08:00 04/23/16 09:27 04/23/16 08:00 Laboratory Results 04/16/16 05:00 04/16/16 05:00 04/22/16 04/23/16 04/24/16 05:59 05:59 05:59 Intake Total 1355 1286 500 Output Total 350 300 Balance 1005 986 500 PT 14.4 SEC (12.0-15.0) 04/20/16 05:00 INR 1.13 (0.83-1.16) 04/20/16 05:00 Physical Exam - Physical Exam General Appearance: WD/WN, alert, no apparent distress Respiratory: No respiratory distress, No accessory muscle use Skin: normal color, warm/dry Neuro/Psych: no motor/sensory deficits, alert, normal mood/affect ICD10 Worksheet Patient Problems: Problems Problem Status Diagnosed Cognitive impairment Acute Debility Acute Intracranial hemorrhage Acute S/P craniotomy Acute
[2016-04-23] MEDS: traZODone 50 MG TAB PO SCH (20:14)
[2016-04-23] MEDS: FLUTICASONE NASAL 120 SPRAYS/16 GM MDI EACHNARE SCH (20:15)
[2016-04-24] MEDS: CARVEDILOL 6.25 MG TAB PO SCH ×2 (08:27→18:33)
[2016-04-24] MEDS: ASPIRIN 81 MG CHEWABLE TAB PO SCH (08:28)
[2016-04-24] MEDS: DABIGATRAN ETEXILATE MESYL 150 MG CAP PO SCH ×2 (08:29→20:08)
[2016-04-24] MEDS: FUROSEMIDE 40 MG TAB PO SCH (08:29)
[2016-04-24] MEDS: LOSARTAN POTASSIUM 25 MG TAB PO SCH (08:30)
[2016-04-24] MEDS: levETIRAcetam 500 MG TAB PO SCH ×2 (08:30→20:09)
[2016-04-24] MEDS: PRAVASTATIN SODIUM 20 MG TAB PO SCH (08:31)
[2016-04-24] MEDS: SPIRONOLACTONE 25 MG TAB PO SCH (08:31)
[2016-04-24] MEDS: SENNOSIDES/DOCUSATE SODIUM TAB PO SCH ×2 (08:32→20:09)
[2016-04-24] MEDS: IPRATROPIUM 0.03% NASAL SPRAY EACHNARE SCH ×3 (08:32→20:13)
--- NOTE | 2016-04-24 09:47 | SOAPPROG ---
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 Initial FIM 38 on 04/17/16; gain to 64 as of 04/24/16. Supervision for ADLs with cues for safety. Santos balance improved from 38 to 50 but with structure. Continue PT and OT to optimize functional status. Methylphenidate has not had significant effect; will discontinue 04/24/16. * Cognitive impairment. Expressive and receptive aphasia; decreased initiation , exec fn, problem solving, attention. Stimulus-bound. Has had improvement, but SLUMS score 6/30 on 04/21/16. Continues to need 24 hr supervision for safety. * S/P ICH, craniotomy, evacuation. Lifting limited to 5 - 10 lb through 04/30/16 , then increase to 20 lb. OK per Neurosurgery to resume anticoagulation for AFib. * AFib. D/W freelance writer Dr. Guo 04/20/16, who saw Mr. Andrews at [facility]. Per CHADS2-VASC score, approx 18% chance of CVA ; per HAS- BLED score, 8% chance of rebleed. Start dabigatran as it's reversible and has lower bleeding risk than warfarin; begun 04/20/16. Continue ASA, carvedilol and digoxin for rate control. * CHF: on spironolactone, furosemide, carvedilol. losartan, digoxin. BP running low but does not appear symptomatic of hypotension or fluid overload. Not hypoxic. Reduced carvedilol from 25 mg BID to 12.5 mg BID on 04/16/16; reduce further to 6.25 mg BID on 04/17/16. Reduce furosemide form 40 mg QD to 20 mg QD due to low BPs, starting 04/20/16. BP increasing 04/21/16; continue to monitor; consider increasing carvedilol. * Obstructive and central sleep apnea. Reviewed sleep study from 2012; plan was for another study to titrate ASV; not sure that happened and does not have CPAP here. On O2 at night. May account for nocturnal dyspnea and awakening * Insomnia: if he is reporting accurately, responding to trazodone. * CAD: on ASA, BP control, statin, NTG. No symptoms at present. Attended staffing, 15 min. D/W case mgmt, nursing, PT, OT, VOCATIONAL AUTO BODY INSTRUCTOR, qa architect. Lives in single level home. 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 Neuro education for and family conference 04/27/16 to determine level of care available and discharge plan. Tentative discharge datge of 05/01/16, to home versus SNF. PCP is Chica Barger. 04/24/16 12:23 Subjective: No complaints. Slept well. Not in pain. No f/c, cough/dyspnea. Objective: Vital Signs Temp Pulse Resp BP Pulse Ox 36.4 C 76 17 121/76 H 95 04/24/16 06:48 04/24/16 08:27 04/24/16 06:48 04/24/16 08:30 04/24/16 06:48 Laboratory Results 04/16/16 05:00 04/16/16 05:00 04/23/16 04/24/16 04/25/16 05:59 05:59 05:59 Intake Total 1286 1500 240 Output Total 300 400 Balance 986 1100 240 PT 14.4 SEC (12.0-15.0) 04/20/16 05:00 INR 1.13 (0.83-1.16) 04/20/16 05:00 - Time Spent With Patient Time Spent With Patient: Greater than 35 minutes floor time today, including more than 50% of time in coordination of care during staffing meeting, and counseling patient. 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
[2016-04-24] MEDS: DIGOXIN 125 MCG TAB PO SCH (10:20)
[2016-04-24] MEDS: BISACODYL 10 MG SUPP PR PRN ×2 (13:09→16:22)
[2016-04-24] MEDS: traZODone 50 MG TAB PO SCH (20:09)
[2016-04-24] MEDS: FLUTICASONE NASAL 120 SPRAYS/16 GM MDI EACHNARE SCH (20:11)
[2016-04-25] MEDS: DABIGATRAN ETEXILATE MESYL 150 MG CAP PO SCH ×2 (08:22→21:27)
[2016-04-25] MEDS: ASPIRIN 81 MG CHEWABLE TAB PO SCH (08:22)
[2016-04-25] MEDS: FUROSEMIDE 40 MG TAB PO SCH (08:22)
[2016-04-25] MEDS: CARVEDILOL 6.25 MG TAB PO SCH ×2 (08:22→17:35)
[2016-04-25] MEDS: levETIRAcetam 500 MG TAB PO SCH ×2 (08:23→21:28)
[2016-04-25] MEDS: LOSARTAN POTASSIUM 25 MG TAB PO SCH (08:24)
[2016-04-25] MEDS: SPIRONOLACTONE 25 MG TAB PO SCH (08:25)
[2016-04-25] MEDS: SENNOSIDES/DOCUSATE SODIUM TAB PO SCH ×2 (08:25→21:28)
[2016-04-25] MEDS: PRAVASTATIN SODIUM 20 MG TAB PO SCH (08:25)
[2016-04-25] MEDS: DIGOXIN 125 MCG TAB PO SCH (10:00)
[2016-04-25] MEDS: IPRATROPIUM 0.03% NASAL SPRAY EACHNARE SCH ×3 (10:00→22:25)
[2016-04-25] MEDS: POLYETHYLENE GLYCOL 3350 17 GM PKT PO SCH (12:13)
--- NOTE | 2016-04-25 12:49 | SOAPPROG ---
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 Initial FIM 38 on 04/17/16; gain to 64 as of 04/24/16. Supervision for ADLs with cues for safety. Santos balance improved from 38 to 50 but with structure. Continue PT and OT to optimize functional status. Methylphenidate has not had significant effect; discontinued 04/24/16. * Cognitive impairment. Expressive and receptive aphasia; decreased initiation , exec fn, problem solving, attention. Stimulus-bound. Has had improvement, but SLUMS score 6/30 on 04/21/16. Continues to need 24 hr supervision for safety. * S/P ICH, craniotomy, evacuation. Lifting limited to 5 - 10 lb through 04/30/16 , then increase to 20 lb. OK per Neurosurgery to resume anticoagulation for AFib. * AFib. D/W bench assembly inspector Dr. Guo 04/20/16, who saw Mr. Andrews at [facility]. Per CHADS2-VASC score, approx 18% chance of CVA ; per HAS- BLED score, 8% chance of rebleed. D/W patient and . Start dabigatran as it 's reversible and has lower bleeding risk than warfarin; begun 04/20/16. Continue ASA, carvedilol and digoxin for rate control. * CHF: on spironolactone, furosemide, carvedilol. losartan, digoxin. BP running low but does not appear symptomatic of hypotension or fluid overload. Not hypoxic. Reduced carvedilol from 25 mg BID to 12.5 mg BID on 04/16/16; reduce further to 6.25 mg BID on 04/17/16. Reduce furosemide form 40 mg QD to 20 mg QD due to low BPs, starting 04/20/16. BP increasing 04/21/16; continue to monitor; consider increasing carvedilol. * Obstructive and central sleep apnea. Reviewed sleep study from 2012; plan was for another study to titrate ASV; not sure that happened and does not have CPAP here. On O2 at night. May account for nocturnal dyspnea and awakening * Insomnia: if he is reporting accurately, responding to trazodone. * CAD: on ASA, BP control, statin, NTG. No symptoms at present. Lives in single level home. 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 Neuro education for and family conference 04/27/16 to determine level of care available and discharge plan. Tentative discharge date of 05/01/16, to home versus SNF. PCP is Chica Barger. 04/25/16 12:46 Subjective: No complaints. Eating lunch with his . Objective: Vital Signs Temp Pulse Resp BP Pulse Ox 36.5 C 60 16 128/68 H 97 04/25/16 08:15 04/25/16 10:00 04/25/16 08:15 04/25/16 08:24 04/25/16 08:15 Laboratory Results 04/16/16 05:00 04/16/16 05:00 04/24/16 04/25/16 04/26/16 05:59 05:59 05:59 Intake Total 1500 900 420 Output Total 400 Balance 1100 900 420 PT 14.4 SEC (12.0-15.0) 04/20/16 05:00 INR 1.13 (0.83-1.16) 04/20/16 05:00 Physical Exam - Physical Exam General Appearance: WD/WN, alert, no apparent distress Respiratory: No respiratory distress, No accessory muscle use Skin: normal color, warm/dry Neuro/Psych: no motor/sensory deficits, alert, normal mood/affect ICD10 Worksheet Patient Problems: Problems Problem Status Diagnosed Cognitive impairment Acute Debility Acute Intracranial hemorrhage Acute S/P craniotomy Acute
[2016-04-25] MEDS: traZODone 50 MG TAB PO SCH (21:28)
[2016-04-25] MEDS: FLUTICASONE NASAL 120 SPRAYS/16 GM MDI EACHNARE SCH (22:24)
[2016-04-26] MEDS: ASPIRIN 81 MG CHEWABLE TAB PO SCH (08:32)
[2016-04-26] MEDS: FUROSEMIDE 40 MG TAB PO SCH (08:33)
[2016-04-26] MEDS: CARVEDILOL 6.25 MG TAB PO SCH ×2 (08:33→17:01)
[2016-04-26] MEDS: DABIGATRAN ETEXILATE MESYL 150 MG CAP PO SCH ×2 (08:33→20:30)
[2016-04-26] MEDS: levETIRAcetam 500 MG TAB PO SCH ×2 (08:34→20:30)
[2016-04-26] MEDS: IPRATROPIUM 0.03% NASAL SPRAY EACHNARE SCH ×3 (08:36→20:31)
[2016-04-26] MEDS: LOSARTAN POTASSIUM 25 MG TAB PO SCH (08:36)
[2016-04-26] MEDS: POLYETHYLENE GLYCOL 3350 17 GM PKT PO SCH (08:36)
[2016-04-26] MEDS: PRAVASTATIN SODIUM 20 MG TAB PO SCH (08:37)
[2016-04-26] MEDS: SPIRONOLACTONE 25 MG TAB PO SCH (08:37)
[2016-04-26] MEDS: SENNOSIDES/DOCUSATE SODIUM TAB PO SCH ×2 (08:42→20:30)
[2016-04-26] MEDS: DIGOXIN 125 MCG TAB PO SCH (10:43)
--- NOTE | 2016-04-26 11:29 | SOAPPROG ---
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 Initial FIM 38 on 04/17/16; gain to 64 as of 04/24/16. Supervision for ADLs with cues for safety. Santos balance improved from 38 to 50 but with structure. Continue PT and OT to optimize functional status. Methylphenidate has not had significant effect; discontinued 04/24/16. * Cognitive impairment. Expressive and receptive aphasia; decreased initiation , exec fn, problem solving, attention. Stimulus-bound. Has had improvement, but SLUMS score 6/30 on 04/21/16. Continues to need 24 hr supervision for safety. * S/P ICH, craniotomy, evacuation. Lifting limited to 5 - 10 lb through 04/30/16 , then increase to 20 lb. OK per Neurosurgery to resume anticoagulation for AFib. * AFib. D/W can pusher Dr. Guo 04/20/16, who saw Mr. Andrews at [facility]. Per CHADS2-VASC score, approx 18% chance of CVA ; per HAS- BLED score, 8% chance of rebleed. D/W patient and . Start dabigatran as it 's reversible and has lower bleeding risk than warfarin; begun 04/20/16. Continue ASA, carvedilol and digoxin for rate control. * Excoriation/ulceration R end of scalp incision: should heal well with no intervention other than covering with bandage. * CHF: on spironolactone, furosemide, carvedilol. losartan, digoxin. BP running low but does not appear symptomatic of hypotension or fluid overload. Not hypoxic. Reduced carvedilol from 25 mg BID to 12.5 mg BID on 04/16/16; reduce further to 6.25 mg BID on 04/17/16. Reduce furosemide form 40 mg QD to 20 mg QD due to low BPs, starting 04/20/16. BP increasing 04/21/16; continue to monitor; consider increasing carvedilol. * Obstructive and central sleep apnea. Reviewed sleep study from 2012; plan was for another study to titrate ASV; not sure that happened and does not have CPAP here. On O2 at night. May account for nocturnal dyspnea and awakening * Insomnia: if he is reporting accurately, responding to trazodone. * CAD: on ASA, BP control, statin, NTG. No symptoms at present. Lives in single level home. 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 Neuro education for and family conference 04/27/16 to determine level of care available and discharge plan. Tentative discharge date of 05/01/16, to home versus SNF. PCP is Chica Barger. 04/26/16 11:28 Subjective: No complaints. Nurse reports that he scratched an itchy area on his scalp; now covered with band-aid. Objective: Vital Signs Temp Pulse Resp BP Pulse Ox 36.7 C 64 16 127/69 H 97 04/26/16 07:43 04/26/16 10:43 04/26/16 07:43 04/26/16 08:36 04/26/16 07:43 Laboratory Results 04/16/16 05:00 04/16/16 05:00 04/25/16 04/26/16 04/27/16 05:59 05:59 05:59 Intake Total 900 1720 420 Balance 900 1720 420 PT 14.4 SEC (12.0-15.0) 04/20/16 05:00 INR 1.13 (0.83-1.16) 04/20/16 05:00 Physical Exam - Physical Exam General Appearance: WD/WN, alert, no apparent distress Respiratory: No respiratory distress, No accessory muscle use Skin: normal color, warm/dry, other (Fronatl incision mostly healed; few areas of eschar on L; approx 2 mm ulceration on R with slough, under band-aid.) Neuro/Psych: alert, normal mood/affect, cognition abnormalities (Much improved spontaneous speech this morning. Describes therapy this morning.) ICD10 Worksheet Patient Problems: Problems Problem Status Diagnosed Cognitive impairment Acute Debility Acute Intracranial hemorrhage Acute S/P craniotomy Acute
[2016-04-26] MEDS: traZODone 50 MG TAB PO SCH (20:30)
[2016-04-26] MEDS: FLUTICASONE NASAL 120 SPRAYS/16 GM MDI EACHNARE SCH (20:32)
[2016-04-27] MEDS: CARVEDILOL 6.25 MG TAB PO SCH ×2 (08:12→17:37)
[2016-04-27] MEDS: ASPIRIN 81 MG CHEWABLE TAB PO SCH (08:13)
[2016-04-27] MEDS: LOSARTAN POTASSIUM 25 MG TAB PO SCH (08:14)
[2016-04-27] MEDS: DABIGATRAN ETEXILATE MESYL 150 MG CAP PO SCH ×2 (08:14→20:33)
[2016-04-27] MEDS: SPIRONOLACTONE 25 MG TAB PO SCH (08:15)
[2016-04-27] MEDS: PRAVASTATIN SODIUM 20 MG TAB PO SCH (08:15)
[2016-04-27] MEDS: SENNOSIDES/DOCUSATE SODIUM TAB PO SCH ×2 (08:15→20:33)
[2016-04-27] MEDS: POLYETHYLENE GLYCOL 3350 17 GM PKT PO SCH (08:15)
[2016-04-27] MEDS: FUROSEMIDE 40 MG TAB PO SCH (08:17)
[2016-04-27] MEDS: levETIRAcetam 500 MG TAB PO SCH ×2 (08:18→20:33)
[2016-04-27] MEDS: IPRATROPIUM 0.03% NASAL SPRAY EACHNARE SCH ×3 (08:24→23:25)
[2016-04-27] MEDS: DIGOXIN 125 MCG TAB PO SCH (10:34)
--- NOTE | 2016-04-27 11:31 | SOAPPROG ---
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 Initial FIM 38 on 04/17/16; gain to 64 as of 04/24/16. Supervision for ADLs with cues for safety. Santos balance improved from 38 to 50 but with structure. Continue PT and OT to optimize functional status. Methylphenidate has not had significant effect; discontinued 04/24/16. * Cognitive impairment. Expressive and receptive aphasia; decreased initiation , exec fn, problem solving, attention. Stimulus-bound. Has had improvement, but SLUMS score 6/30 on 04/21/16. Continues to need 24 hr supervision for safety. * S/P ICH, craniotomy, evacuation. Lifting limited to 5 - 10 lb through 04/30/16 , then increase to 20 lb. OK per Neurosurgery to resume anticoagulation for AFib. * AFib. D/W derrick engineer Dr. Guo 04/20/16, who saw Mr. Andrews at [facility]. Per CHADS2-VASC score, approx 18% chance of CVA ; per HAS- BLED score, 8% chance of rebleed. D/W patient and . Start dabigatran as it 's reversible and has lower bleeding risk than warfarin; begun 04/20/16. Continue ASA, carvedilol and digoxin for rate control. * Excoriation/ulceration R end of scalp incision: should heal well with no intervention other than covering with bandage. * CHF: on spironolactone, furosemide, carvedilol. losartan, digoxin. BP running low but does not appear symptomatic of hypotension or fluid overload. Not hypoxic. Reduced carvedilol from 25 mg BID to 12.5 mg BID on 04/16/16; reduce further to 6.25 mg BID on 04/17/16. Reduce furosemide form 40 mg QD to 20 mg QD due to low BPs, starting 04/20/16. BP increasing 04/21/16; continue to monitor; consider increasing carvedilol. * Obstructive and central sleep apnea. Reviewed sleep study from 2012; plan was for another study to titrate ASV; not sure that happened and does not have CPAP here. On O2 at night. May account for nocturnal dyspnea and awakening * Insomnia: if he is reporting accurately, responding to trazodone. * CAD: on ASA, BP control, statin, NTG. No symptoms at present. Lives in single level home. 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 Neuro education for and family conference 04/27/16 to determine level of care available and discharge plan. Tentative discharge date of 05/01/16, to home versus SNF. PCP is Chica Barger. 04/27/16 11:29 Subjective: No complaints. Slept well, no pain, dyspnea, f/c. Objective: Vital Signs Temp Pulse Resp BP Pulse Ox 36.4 C 73 14 118/75 95 04/27/16 07:52 04/27/16 10:34 04/27/16 07:52 04/27/16 07:52 04/27/16 07:52 Laboratory Results 04/16/16 05:00 04/16/16 05:00 04/26/16 04/27/16 04/28/16 05:59 05:59 05:59 Intake Total 1720 1800 534 Output Total 550 Balance 1720 1800 -16 PT 14.4 SEC (12.0-15.0) 04/20/16 05:00 INR 1.13 (0.83-1.16) 04/20/16 05:00 Physical Exam - Physical Exam General Appearance: WD/WN, alert, no apparent distress Respiratory: No respiratory distress, No accessory muscle use Skin: normal color, warm/dry Neuro/Psych: no motor/sensory deficits, alert, normal mood/affect, No abnormal gait ICD10 Worksheet Patient Problems: Problems Problem Status Diagnosed Cognitive impairment Acute Debility Acute Intracranial hemorrhage Acute S/P craniotomy Acute
[2016-04-27] MEDS: MAGNESIUM HYDROXIDE 30 ML UDCUP PO PRN (16:11)
[2016-04-27] MEDS: FLUTICASONE NASAL 120 SPRAYS/16 GM MDI EACHNARE SCH ×2 (20:32→20:37)
[2016-04-27] MEDS: traZODone 50 MG TAB PO SCH (20:33)
[2016-04-28] MEDS: PRAVASTATIN SODIUM 20 MG TAB PO SCH (08:51)
[2016-04-28] MEDS: FUROSEMIDE 40 MG TAB PO SCH (08:51)
[2016-04-28] MEDS: levETIRAcetam 500 MG TAB PO SCH ×2 (08:51→19:53)
[2016-04-28] MEDS: SPIRONOLACTONE 25 MG TAB PO SCH (08:51)
[2016-04-28] MEDS: ASPIRIN 81 MG CHEWABLE TAB PO SCH (08:51)
[2016-04-28] MEDS: POLYETHYLENE GLYCOL 3350 17 GM PKT PO SCH (08:51)
[2016-04-28] MEDS: SENNOSIDES/DOCUSATE SODIUM TAB PO SCH ×2 (08:51→19:54)
[2016-04-28] MEDS: DABIGATRAN ETEXILATE MESYL 150 MG CAP PO SCH ×2 (08:52→19:53)
[2016-04-28] MEDS: CARVEDILOL 6.25 MG TAB PO SCH ×2 (08:52→17:23)
[2016-04-28] MEDS: IPRATROPIUM 0.03% NASAL SPRAY EACHNARE SCH ×3 (08:52→19:57)
[2016-04-28] MEDS: LOSARTAN POTASSIUM 25 MG TAB PO SCH (08:52)
[2016-04-28] MEDS: DIGOXIN 125 MCG TAB PO SCH (09:00)
--- NOTE | 2016-04-28 13:53 | SOAPPROG ---
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 Initial FIM 38 on 04/17/16; gain to 64 as of 04/24/16. Supervision for ADLs with cues for safety. Santos balance improved from 38 to 50 but with structure. Continue PT and OT to optimize functional status. Methylphenidate has not had significant effect; discontinued 04/24/16. * Cognitive impairment. Expressive and receptive aphasia; decreased initiation , exec fn, problem solving, attention. Stimulus-bound. Has had improvement; OLOG improved form to , still abnormal. Reduced awareness of history of injury and current deficits. SLUMS score /30 on 04/21/16. Continues to need 24 hr supervision for safety. * S/P ICH, craniotomy, evacuation. Lifting limited to 5 - 10 lb through 04/30/16 , then increase to 20 lb. OK per Neurosurgery to resume anticoagulation for AFib. * AFib. D/W radiology physician Dr. Guo 04/20/16, who saw Mr. Andrews at [facility]. Per CHADS2-VASC score, approx 18% chance of CVA ; per HAS- BLED score, 8% chance of rebleed. D/W patient and . Start dabigatran as it 's reversible and has lower bleeding risk than warfarin; begun 04/20/16. Continue ASA, carvedilol and digoxin for rate control. * Excoriation/ulceration R end of scalp incision: should heal well with no intervention other than covering with bandage. * CHF: on spironolactone, furosemide, carvedilol. losartan, digoxin. BP running low but does not appear symptomatic of hypotension or fluid overload. Not hypoxic. Reduced carvedilol from 25 mg BID to 12.5 mg BID on 04/16/16; reduce further to 6.25 mg BID on 04/17/16. Reduce furosemide form 40 mg QD to 20 mg QD due to low BPs, starting 04/20/16. BP increasing 04/21/16; continue to monitor; consider increasing carvedilol. * Obstructive and central sleep apnea. Reviewed sleep study from 2012; plan was for another study to titrate ASV; not sure that happened and does not have CPAP here. On O2 at night. May account for nocturnal dyspnea and awakening * Insomnia: if he is reporting accurately, responding to trazodone. * CAD: on ASA, BP control, statin, NTG. No symptoms at present. Attended family meeting, 30 min. and daughter in attendence. D/W case mgmt, nursing, PT, OT, ELEMENTARY ASSISTANT TEACHER. Lives in single level home. He and his have been caregivers for grandchildren, but now he needs continual supervision. Plan for discharge 04/30/16, to SNF or home depending on caregiver avialability.. PCP is Chica Barger. 04/28/16 13:49 Subjective: No complaints. Ambulating in black with nurse. Objective: Vital Signs Temp Pulse Resp BP Pulse Ox 36.5 C 68 16 124/72 H 97 04/28/16 05:09 04/28/16 09:00 04/28/16 05:09 04/28/16 08:52 04/28/16 05:09 Laboratory Results 04/16/16 05:00 04/16/16 05:00 04/27/16 04/28/16 04/29/16 05:59 05:59 05:59 Intake Total 6 1318 540 Output Total 550 Balance 2036 768 540 PT 14.4 SEC (12.0-15.0) 04/20/16 05:00 INR 1.13 (0.83-1.16) 04/20/16 05:00 Physical Exam - Physical Exam General Appearance: WD/WN, alert, no apparent distress Respiratory: No respiratory distress, No accessory muscle use Skin: normal color, warm/dry Neuro/Psych: no motor/sensory deficits, alert, normal mood/affect ICD10 Worksheet Patient Problems: Problems Problem Status Diagnosed Cognitive impairment Acute Debility Acute Intracranial hemorrhage Acute S/P craniotomy Acute
[2016-04-28] MEDS: traZODone 50 MG TAB PO SCH (19:54)
[2016-04-28] MEDS: FLUTICASONE NASAL 120 SPRAYS/16 GM MDI EACHNARE SCH (19:58)
[2016-04-29] MEDS: POLYETHYLENE GLYCOL 3350 17 GM PKT PO SCH (09:11)
[2016-04-29] MEDS: ASPIRIN 81 MG CHEWABLE TAB PO SCH (09:12)
[2016-04-29] MEDS: DABIGATRAN ETEXILATE MESYL 150 MG CAP PO SCH ×2 (09:12→19:59)
[2016-04-29] MEDS: CARVEDILOL 6.25 MG TAB PO SCH ×2 (09:12→17:13)
[2016-04-29] MEDS: FUROSEMIDE 40 MG TAB PO SCH (09:13)
[2016-04-29] MEDS: levETIRAcetam 500 MG TAB PO SCH ×2 (09:14→20:00)
[2016-04-29] MEDS: IPRATROPIUM 0.03% NASAL SPRAY EACHNARE SCH ×3 (09:14→20:03)
[2016-04-29] MEDS: SPIRONOLACTONE 25 MG TAB PO SCH (09:15)
[2016-04-29] MEDS: PRAVASTATIN SODIUM 20 MG TAB PO SCH (09:15)
[2016-04-29] MEDS: SENNOSIDES/DOCUSATE SODIUM TAB PO SCH ×2 (09:15→19:59)
[2016-04-29] MEDS: LOSARTAN POTASSIUM 25 MG TAB PO SCH (09:16)
[2016-04-29] MEDS: DIGOXIN 125 MCG TAB PO SCH (10:44)
--- NOTE | 2016-04-29 12:17 | SOAPPROG ---
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 Initial FIM 38 on 04/17/16; gain to 64 as of 04/24/16. Supervision for ADLs with cues for safety. Santos balance improved from 38 to 50 but with structure. Continue PT and OT to optimize functional status. Methylphenidate has not had significant effect; discontinued 04/24/16. * Cognitive impairment. Expressive and receptive aphasia; decreased initiation , exec fn, problem solving, attention. Stimulus-bound. Has had improvement; OLOG improved form to , still abnormal. Reduced awareness of history of injury and current deficits. SLUMS score /30 on 04/21/16. Continues to need 24 hr supervision for safety. * S/P ICH, craniotomy, evacuation. Lifting limited to 5 - 10 lb through 04/30/16 , then increase to 20 lb. OK per Neurosurgery to resume anticoagulation for AFib. * AFib. D/W cold water machine operator Dr. Guo 04/20/16, who saw Mr. Andrews at [facility]. Per CHADS2-VASC score, approx 18% chance of CVA ; per HAS- BLED score, 8% chance of rebleed. D/W patient and . Start dabigatran as it 's reversible and has lower bleeding risk than warfarin; begun 04/20/16. Continue ASA, carvedilol and digoxin for rate control. * Excoriation/ulceration R end of scalp incision: should heal well with no intervention other than covering with bandage. * CHF: on spironolactone, furosemide, carvedilol. losartan, digoxin. BP running low but does not appear symptomatic of hypotension or fluid overload. Not hypoxic. Reduced carvedilol from 25 mg BID to 12.5 mg BID on 04/16/16; reduce further to 6.25 mg BID on 04/17/16. Reduce furosemide form 40 mg QD to 20 mg QD due to low BPs, starting 04/20/16. * Obstructive and central sleep apnea. Reviewed sleep study from 2012; plan was for another study to titrate ASV; not sure that happened and does not have CPAP here. On O2 at night. May account for nocturnal dyspnea and awakening * Insomnia: if he is reporting accurately, responding to trazodone. * CAD: on ASA, BP control, statin, NTG. No symptoms at present. Lives in single level home. He and his have been caregivers for grandchildren, but now he needs continual supervision. Plan for discharge . PCP is Chica Barger. 04/29/16 12:15 Subjective: Had a sharp R chest pain while eating today. O/W w/out complaints. No cough/ dyspnea, f/c, leg swelling. Slept well. Objective: Vital Signs Temp Pulse Resp BP Pulse Ox 36.8 C 70 15 102/50 L 95 04/29/16 05:49 04/29/16 10:44 04/29/16 05:49 04/29/16 10:43 04/29/16 10:43 Laboratory Results 04/16/16 05:00 04/16/16 05:00 04/28/16 04/29/16 04/30/16 05:59 05:59 05:59 Intake Total 1318 1820 534 Output Total 550 Balance 768 1820 534 PT 14.4 SEC (12.0-15.0) 04/20/16 05:00 INR 1.13 (0.83-1.16) 04/20/16 05:00 Physical Exam - Physical Exam General Appearance: WD/WN, alert, no apparent distress Respiratory: normal breath sounds, No crackles, No rhonchi, No wheezing Cardiac/Chest: irregularly irregular, No edema, No JVD Skin: normal color, warm/dry Neuro/Psych: no motor/sensory deficits, alert, normal mood/affect ICD10 Worksheet Patient Problems: Problems Problem Status Diagnosed Cognitive impairment Acute Debility Acute Intracranial hemorrhage Acute S/P craniotomy Acute
[2016-04-29 19:29] VITALS: O2SAT 93
[2016-04-29] MEDS: traZODone 50 MG TAB PO SCH (20:00)
[2016-04-29] MEDS: FLUTICASONE NASAL 120 SPRAYS/16 GM MDI EACHNARE SCH (20:02)
[2016-04-30 07:45] VITALS: RESP 14; TEMP 98.4
[2016-04-30] MEDS: POLYETHYLENE GLYCOL 3350 17 GM PKT PO SCH (08:29)
[2016-04-30] MEDS: CARVEDILOL 6.25 MG TAB PO SCH (08:29)
[2016-04-30] MEDS: FUROSEMIDE 40 MG TAB PO SCH (08:30)
[2016-04-30] MEDS: ASPIRIN 81 MG CHEWABLE TAB PO SCH (08:30)
[2016-04-30] MEDS: DABIGATRAN ETEXILATE MESYL 150 MG CAP PO SCH (08:30)
[2016-04-30] MEDS: levETIRAcetam 500 MG TAB PO SCH (08:31)
[2016-04-30] MEDS: LOSARTAN POTASSIUM 25 MG TAB PO SCH (08:33)
[2016-04-30] MEDS: PRAVASTATIN SODIUM 20 MG TAB PO SCH (08:33)
[2016-04-30] MEDS: SPIRONOLACTONE 25 MG TAB PO SCH (08:34)
[2016-04-30] MEDS: SENNOSIDES/DOCUSATE SODIUM TAB PO SCH (08:34)
[2016-04-30] MEDS: IPRATROPIUM 0.03% NASAL SPRAY EACHNARE SCH (08:35)
[2016-04-30 08:36] VITALS: BP 105/70
[2016-04-30] MEDS ORDERED: ACETAMINOPHEN 325 MG TAB PO PRN (09:19)
[2016-04-30] MEDS: DIGOXIN 125 MCG TAB PO SCH (09:55)
[2016-04-30 09:57] VITALS: PULSE 70
--- NOTE | 2016-05-05 17:47 | GDS ---
[f rep st] DISCHARGE SUMMARY ADMITTING DIAGNOSIS: Left frontal intraparenchymal hemorrhage. DISCHARGE DIAGNOSIS: Left frontal intraparenchymal hemorrhage. OTHER DIAGNOSES: 1. Cognitive impairment. 2. Atrial fibrillation. 3. Congestive heart failure. 4. Obstructive and central sleep apnea. CONSULTATIONS: There were none. PROCEDURES: There were none. COMPLICATIONS: There were none. HISTORY AND HOSPITAL COURSE: The patient was admitted from [facility] where he had been treated for a spontaneous left frontal intraparenchymal hemorrhage on 04/04/2016. He was on warfarin at the time with an INR of 2.12. He underwent craniotomy due to a 1 cm [id number] midline shift. He was stable or improving on subsequent head CTs. He did well in rehabilitation, though he did not achieve safe independent function. His initial Functional Pickett Measure (FIM) was 38 on 2016, which is consistent with needing assistance in all activities involving mobility and self-care with much decreased initiation and fatigue, especially in the afternoon. He had a trial of methylphenidate which did not improve his condition, and he was noted to have increased perseveration while on the methylphenidate, so it was discontinued. He had eventual gain in his FIM to 64 as of 04/24/2016, which is consistent with a fairly high level of long term care. The reason that he was not ready to be independent was that he continued to require supervision for mobility and activities of daily living with cues for safety. He had poor balance. His Santos balance inventory score was 38/56, and he was only able to score this well due to cues for structure. Regarding cognitive impairment, he had improvement. However, there was reduced awareness of his injury and his deficits, and he continued to require 24 hour supervision for safety. Per discharge notes, Neurosurgery had considered it appropriate for him to resume anticoagulation for atrial fibrillation after sufficient time had passed. Atrial fibrillation and the question of anticoagulation was discussed with Dr. Guo, the automation technologist, who saw him at [facility]. She considered his chance of a cerebrovascular accident due to atrial fibrillation per the [id number] score to be 18% and his chance of a rebleed on anticoagulation was approximately 8%. Anticoagulation was discussed with the patient and his , and the decision was made to start dabigatran, which has a lower bleeding risk on warfarin and is reversible. This was started on 2016. Additionally, he was continued on aspirin, carvedilol and digoxin for coronary artery disease and rate control of atrial fibrillation. Regarding congestive heart failure, he was continued on spironolactone, furosemide, carvedilol, losartan and digoxin. His blood pressure was low, though he was not symptomatic, nor did he appear to have fluid overload. He had no hypoxemia. Because of the low blood pressure, carvedilol was reduced from 25 mg b.i.d. eventually to 6.25 mg b.i.d., and his furosemide was reduced from 40 mg daily to 20 mg daily starting on 04/19/2016. Throughout the rest of his stay, the congestive heart failure remained compensated. Record review revealed that he has a history of both obstructive and central sleep apnea. There was a sleep study from 2012. There was a plan to have another study to titrate an ASV that did not appear to have happened. He was continued on oxygen at night. It is in his best interest to consider completing the studies regarding possible use of an ASV to treat sleep apnea. Providing care supervision for this patient was more than his family was able to do and so he was discharged to a [facility]iary facility at [facility]. LABS AND STUDIES DURING HIS STAY: On 04/16/2016, a CBC revealed an elevated white blood cell count at 13.72 with no left shift. Otherwise, there was no anemia and platelet count was normal. Coagulation studies in contemplation of initiating warfarin showed an INR of 1.15 on 04/16/2016 and 1.13 on 04/20/2016. Serum chemistry on 04/16/2016 revealed normal renal function and electrolytes. He had a slight elevation of total bilirubin at 1.9 and of AST and ALT at 105 and 92 respectively. Liver function tests were otherwise within normal limits. DISCHARGE PLAN: Condition upon discharge is good. Activity is ad nannette, but he requires supervision for safety with ambulation and activities of daily living. Diet is regular. Date of next appointment: He is to follow up with neurosurgeon, Dr. Kerns, on May 07. He will follow up with the attending physician who was assigned to him at [facility], and he can follow up on an as-needed basis with his primary care provider, Dr. Chica Barger. MEDICATIONS AT DISCHARGE: 1. Spironolactone 25 mg p.o. daily. 2. Levetiracetam 750 mg p.o. q.12 hours. 3. Senna/docusate 1 p.o. b.i.d. 4. Acetaminophen 650 mg p.o. q.6 hours p.r.n. 5. Pravastatin 20 mg p.o. daily. 6. Nitroglycerin 0.4 mg sublingual q.5 minutes p.r.n. 7. Losartan 25 mg p.o. b.i.d. 8. Ipratropium nasal spray 2 sprays each naris t.i.d. 9. Fluticasone nasal spray each naris q.h.s. 10. Aspirin 81 mg p.o. daily. 11. Digoxin 125 mcg p.o. daily at 10 a.m. 12. Trazodone 50 mg p.o. q.h.s. 13. Polyethylene glycol 17 g p.o. daily. 14. Furosemide 20 mg p.o. daily. 15. Dabigatran 150 mg p.o. b.i.d. 16. Carvedilol 6.25 mg p.o. b.i.d. ISSUES TO BE ADDRESSED AT FOLLOWUP: 1. Resolution of intracranial hemorrhage with followup with neurosurgeon, Dr. Kerns, on May 07. 2. Mobility, ADLs and cognition: He will continue to have therapy with the physical therapy, occupational therapy, and speech and language pathology at the [facility], and he can follow up again with his new attending there, as well as Dr. Barger. 3. Atrial fibrillation, on dabigatran: He should be monitored for any signs or symptoms of bleeding. 4. Congestive heart failure has been compensated; however, he has he has had a decrease of furosemide and carvedilol, so he should be monitored for any decompensation of his congestive heart failure. 5. Obstructive and central sleep apnea: He is advised to have a repeat sleep study for titration of an ASV sometime after discharge. 6. Liver function abnormalities: He should have a repeat complete metabolic profile done sometime after discharge. Copy requested to: [facility] To be seen by his attending physician assigned there Chica Barger MD /[id number]/MODL [id number]
== END 2016-04-30 13:18 | DRG 949 ==
LOC: BREH 04-15 15:41
PROVIDERS: ADMIT Internal Medicine; ATTEND Physical Medicine & Rehabilitation
PROC: F07M3ZZ Motor Function Treatment of Musculoskeletal System - Whole Body (ICD-10-PCS; principal; 2016-04-15)
PROC: F0636ZZ Communicative/Cognitive Integration Skills Treatment of Neurological System - Whole Body (ICD-10-PCS; principal; 2016-04-15)
PROC: F08Z7ZZ Vocational Activities and Functional Community or Work Reintegration Skills Treatment (ICD-10-PCS; principal; 2016-04-15)
DX: Z48.811 Encounter for surgical aftercare following surgery on the nervous system (principal); I47.2 Ventricular tachycardia; I69.114 Frontal lobe and executive function deficit following nontraumatic intracerebral hemorrhage; I10 Essential (primary) hypertension; E78.5 Hyperlipidemia, unspecified; I48.91 Unspecified atrial fibrillation; I25.5 Ischemic cardiomyopathy; G47.00 Insomnia, unspecified; I25.2 Old myocardial infarction; Z95.1 Presence of aortocoronary bypass graft; Z79.01 Long term (current) use of anticoagulants; Z95.810 Presence of automatic (implantable) cardiac defibrillator
CPT/HCPCS: 92507-GN; 92522-GN; 92610; 97110-GO; 97110-GP; 97112-GO; 97112-GP; 97116-GP; 97163-GP; 97166-GO; 97530-GO; 97530-GP; 97532-GO; 97535-GO; 99366-GO; Q9967